=== PATIENT | female | born 1975 | race Caucasian/White ===

== ENCOUNTER 2017-08-23 14:17 | Emergency (ER) | payer OTHER ==
[~2017-08-23] VITALS: Ht 152.4 cm; Wt 63.5 kg
[2017-08-23 14:35] VITALS: BP 133/53
--- NOTE | 2017-08-23 14:47 | ER.PDOC ---
General Chief Complaint: Animal Bite Stated Complaint: DOG BITE Time seen by MD: 14:22 Source: patient Exam Limitations: no limitations History of Present Illness Initial Comments pt is staying w/ someone that has 21 dogs and they didn't know her so when she stepped into the back yard they bit her in 2 places on LLE 8d ago. Pt started left over amoxil 3 days ago but c/o "pain" localized to smaller distal bite worse w/ palpation or squeezing is w/o radiation and she fears she may have something in it. Pt w/o systemic s/s Onset: other Where: home Animal: dog Animal Appearance: appeared well (animals were and have since been acting normal but unaware of their immunization) Animal Immunizations: unknown Animal Disposition: Animal Known, Can Be Observed Context of Attack: other Severity of Injury: bitten Injury Location: lower extremity Allergies: Coded Allergies: codeine (Verified Allergy, Severe, respiratory distress, 08/23/17) Sulfa (Sulfonamide Antibiotics) (Verified Allergy, Intermediate, 08/23/17) Past Medical History Medical History: no pertinent history, other (depression, anxiety) Surgical History: no surgical history LMP (females 10-50): 3 weeks Social History Alcohol Use: none Drug Use: none Reviewed Nursing Reviewed: Vital Signs, Abn. Noted, Nursing Assessment Review of Systems Constitutional: no symptoms reported Eyes: no symptoms reported Ears: no symptoms reported Nose: no symptoms reported Mouth: no symptoms reported Throat: no symptoms reported Respiratory: no symptoms reported Cardiovascular: no symptoms reported Gastrointestinal: no symptoms reported Genitourinary: no symptoms reported Musculoskeletal: see HPI Skin: see HPI Physical Exam General Appearance: alert, no distress Skin: see diagram, puncture Neuro/Vascular/Tendon: no vascular compromise, sensation nml, oriented x3, nml ROM Psych: mood/affect nml HEENT: atraumatic, PERRL, eye lids/conjun nml, ENT nml external inspect. Neck: uninjured, nml inspection Resp/CVS: chest non-tender, breath sounds nml, heart sounds nml, reg. rate & rhythm Abdomen: nml inspection, non-tender Back: nml inspection Extremities: ROM nml, see diagram 1 - 6cm yellow contusion 2 - 2cm area of erythema w/o fluctuance Progress Progress update tetnus and change to augmentin, xray for radioopaque fb and NS to notify PD for obs of animals will tx w/ abx for dog bite; Reviewed results with pt/vicky and pt/ vicky agrees with treatment plan and discharge and without questions at d/c. 911/ ER precautions discussed. EKG/XRAY/CT/US XRAY: leg XRAY Comments: nad Course Blood Pressure Systolic: 133 Blood Pressure Diastolic: 53 Blood Pressure Mean: 79 Departure Time of Disposition: 15:02 Disposition: 01 HOME, SELF-CARE Impression: Primary Impression: Dog bite of calf Additional Impression: Cellulitis Condition: Stable Referrals: PCP,UNKNOWN (PCP) PRIMARY CARE PROVIDER Additional Instructions: See local dr or urgent care for recheck in 2 days. Duration or Time Spent with Pa: 15 Problem Qualifiers SHADI KEYES MD Aug 23, 2017 14:47
--- NOTE | 2017-08-23 14:58 | DIREP ---
PROCEDURE:XRAY TIB & FIB 2 VW-RT COMPARISON:None. INDICATIONS:DOG BITE, POSS FB FINDINGS: BONES:Normal. JOINTS:Normal. SOFT TISSUES:Normal. OTHER:No additional findings. CONCLUSION:Normal examination of the right tibia and fibula. No foreign bodies are identified. Dictated by: El Sanchez M.D. on 08/23/2017 at 03:02 PM
[2017-08-23] MEDS ORDERED: BOOSTRIX VACCINE SYRINGE IM ONE (15:00)
[2017-08-23 15:37] VITALS: BP 133/53
== END 2017-08-23 15:37 | disposition home or self-care (01) ==
LOC: ER 14:17
DX: S81.852A Open bite, left lower leg, initial encounter (principal); L03.116 Cellulitis of left lower limb; F32.9 Major depressive disorder, single episode, unspecified; F41.9 Anxiety disorder, unspecified; Z88.2 Allergy status to sulfonamides; Z88.5 Allergy status to narcotic agent; W54.0XXA Bitten by dog, initial encounter; Y93.89 Activity, other specified; Y92.096 Garden or yard of other non-institutional residence as the place of occurrence of the external cause; Y99.8 Other external cause status
CPT/HCPCS: 90471; 99284; 73590-RT